=== PATIENT | female | born 1950 | race Caucasian/White ===

== ENCOUNTER 2020-12-14 14:14 | Emergency (ER) | payer MEDICARE ==
[2020-12-14] MEDS ORDERED: Sodium Chloride 0.9% 100 ML ONE ×2 (14:58→15:36)
[2020-12-14] MEDS ORDERED: cefTRIAXone\\ROCEPHIN 1 GM VIAL ONE ×2 (14:58→15:36)
[2020-12-14 15:28] LABS: #Lymphocytes 0.3 thou/uL (1.20-3.40); #Monocytes 0.2 thou/uL (0.11-0.59); #Neutrophils 12.2 thou/uL (1.40-6.50); %Basophils 0.4 % (0.0-1.0); %Lymphocytes 2.4 % (21.0-51.0); %Monocytes 1.6 % (0.0-10.0); %Neutrophils 95.5 % (42.0-75.0); Hemoglobin 13.2 g/dL (12.0-16.0); Mean Corpuscular HGB CONC 33.1 g/dL (32.0-36.0); Mean Corpuscular Hemoglobin 30.5 pg (27.0-31.0); Mean Corpuscular Volume 92.4 fL (78.0-98.0); Mean Platelet Volume 6.8 fL (7.4-10.4); Platelet Count 167 thou/uL (130-400); RBC Distribution Width 11.9 % (11.5-14.5); Red Blood Cell (RBC) Count 4.31 mill/uL (4.20-5.40); White Blood Cell (WBC) Count 12.7 thou/uL (4.8-10.8)
[2020-12-14 15:29] LABS: ALT (SGPT) 23 U/L (8-55); AST (SGOT) 21 U/L (5-34); Albumin 3.5 g/dL (3.4-4.8); Alkaline Phosphatase 95 U/L (40-110); Anion Gap 15 mmol/L (10-20); BUN (Urea Nitrogen) 10 mg/dL (9.8-20.1); Bilirubin, Total 1.7 mg/dL (0.2-1.2); Calc. Creatinine Clearance 0 mL/min (70-130); Calcium 9.2 mg/dL (7.8-10.44); Carbon Dioxide 22 mmol/L (23-31); Chloride 106 mmol/L (98-107); Globulin 2.5 g/dL (2.4-3.5); Glucose 124 mg/dL (80-115); Potassium 3.6 mmol/L (3.5-5.1); Sodium 139 mmol/L (136-145)
[2020-12-14 15:46] LABS: CKMB 1.1 ng/mL (0-6.6)
[2020-12-14] MEDS ORDERED: Aspirin Chewable 81 MG TAB ONE ×2 (15:54→15:57)
[2020-12-14] MEDS ORDERED: Acetaminophen 325 MG TAB ONE (15:54)
[2020-12-14 17:33] LABS: Bilirubin Negative (Negative); Blood, Urine Large (Negative); Clarity Cloudy (Clear); Glucose, Urine (Dipstick) Negative (Negative); Ketone, Urine Trace mg/dL (Negative); Leukocyte Moderate (Negative); Nitrite Negative (Negative); Protein, Urine (Dipstick) 100 mg/dL (Neg-Trace); Urobilinogen 0.2 mg/dL (Less than 2)
[2020-12-14 17:34] LABS: Bacteria/HPF 3+ HPF (None Seen); RBC/HPF 0-3 HPF (0-3); Squamous Epithelial 0-3 HPF (0-3)
[2020-12-14 18:01] LABS: Lactic Acid 0.9 mmol/L (0.5-2.2)
[2020-12-14] MEDS ORDERED: Enoxaparin Sodium 100 MG/ML SYRINGE ONE (18:11)
[2020-12-14 18:23] LABS: SARS-CoV-2 NAA Rapid Test Not Detected (NotDetected)
== END 2020-12-14 19:00 | disposition short-term general hospital (02) ==
LOC: BURERS 14:14
DX: A41.9 Sepsis, unspecified organism (principal); N39.0 Urinary tract infection, site not specified; I10 Essential (primary) hypertension; Z79.899 Other long term (current) drug therapy; Z20.822 Contact with and (suspected) exposure to COVID-19
CPT/HCPCS: 0240U; 71045; 71250; 80053; 82553; 83605; 83880; 84484; 85025; 87040; 87077; 87086; 87149 ×2; 87186; 87804 ×2; 93005; 96365; 96372; 99285; 36415; 81003; 81015; J0696; J1650; J3490

== ENCOUNTER 2022-03-19 18:02 | Emergency (ER) | payer MEDICARE, OTHER ==
[2022-03-19] MEDS ORDERED: Cephalexin 250 MG CAP ONE ×2 (18:32→18:40)
[2022-03-19] MEDS ORDERED: Bacitracin 1 PK ONE (18:32)
[2022-03-19] MEDS ORDERED: Boostrix 0.5 ML (Tdap) VIAL (>/=7 yrs of age) ONE (18:33)
== END 2022-03-19 18:49 | disposition home or self-care (01) ==
LOC: BURERS 18:02
DX: L03.012 Cellulitis of left finger (principal); I10 Essential (primary) hypertension; Z23 Encounter for immunization
CPT/HCPCS: 90471; 90715

== ENCOUNTER 2022-03-30 14:06 | Emergency (ER) | payer OTHER | END 2022-03-30 15:00 | disposition home or self-care (01) | LOC: BURERS 14:06 | DX: Z00.00 Encounter for general adult medical examination without abnormal findings (principal); I10 Essential (primary) hypertension; M81.0 Age-related osteoporosis without current pathological fracture; Z85.3 Personal history of malignant neoplasm of breast; Z79.899 Other long term (current) drug therapy | CPT/HCPCS: 99282 ==

== ENCOUNTER 2023-05-17 13:35 | Emergency (ER) | payer OTHER | END 2023-05-17 15:14 | disposition home or self-care (01) | LOC: BURERS 13:35 | DX: S60.221A Contusion of right hand, initial encounter (principal); I10 Essential (primary) hypertension; Z79.899 Other long term (current) drug therapy; W22.09XA Striking against other stationary object, initial encounter; Y93.02 Activity, running ==